=== PATIENT | female | born 1955 | race Two or more races ===

== ENCOUNTER 2019-09-17 08:16 | Emergency (ER) | payer OTHER ==
[~2019-09-17] VITALS: Ht 152.4 cm; Wt 67.6 kg
[2019-09-17 08:30] VITALS: BP_SYST 161; BP_SYST 162; BP_DIAS 57; BP_DIAS 73
--- NOTE | 2019-09-17 08:30 | NUR ---
ED Nurse Note: PT AMBULATED TO ED WITH DAUGHTER WITH C/O OF HIGH BP AT 0800 TODAY. PER PT HER BP WAS 207/111. PT TAKES LOSARTAN AT 0700 TODAY.
--- NOTE | 2019-09-17 08:31 | NUR ---
ED Nurse Note: PT DENIES PAIN, HEADACHES, AND BLURRY VISION. PT PLACED IN GOWN AND ON MONITOR. DAUGHTER AT BEDSIDE. IV SITE ESTABLISHED; PATENT AND INTACT. BLOOD SPECIMEN COLLECTED AND SENT TO LAB. Addendum: 09/17/19 at 0916 by PDELEON ED Nurse Note: PT DENIES PAIN, HEADACHES, AND BLURRY VISION. PT PLACED IN GOWN AND ON MONITOR. DAUGHTER (NAMAN) AT BEDSIDE. IV SITE ESTABLISHED; PATENT AND INTACT. BLOOD SPECIMEN COLLECTED AND SENT TO LAB.
--- NOTE | 2019-09-17 08:57 | NUR ---
ED Nurse Note: XRAY AT BEDSIDE
--- NOTE | 2019-09-17 08:58 | Emergency Room Report ---
History of Present Illness General Chief Complaint: General Complaint Source: Patient Present Illness HPI 63-year-old female complaining of hypertension found to have high blood pressure of 207/111 at today at 8 AM. She took 25 mg of losartan this morning. Patient states that her blood pressure has been going up and down and she has been changing her medication dose associated with her blood pressure. Patient states yesterday in the morning she was very lightheaded and dizzy with blood pressure systolic in the 80s so she did not take her losartan in the morning. She reports that in the evening though it was elevated so she took 25 mg losartan at 9 PM. This morning it was elevated again so she took another dose at 8 AM. Her losartan is prescribed once daily.. She states that she does not often eat breakfast and that can change her blood pressure which changes if she takes her medication. She does not eat breakfast because she has gastritis and sometimes it severe that she is unable to tolerate food. She has not tried any medications for this recently She also states she has anginal pain which she is also takes nitroglycerin sublingual for. She has had no doses of nitroglycerin this week She denies any chest pain, shortness of breath, nausea, diaphoresis, vomiting, back pain, abdominal pain, dizziness at this time Past medical history includes high cholesterol, diabetes, hypertension Allergies: Coded Allergies: No Known Allergies (Unverified , 09/17/19) Patient History Last Menstrual Period: N/A Nursing Documentation-[facility] Past Medical History: No Stated History Hx Cardiac Problems: No - Hypercholesterolemia Hx Hypertension: Yes Hx Diabetes: Yes Review of Systems Constitutional: Denies: chills, fever Respiratory: Denies: cough, shortness of breath Cardiovascular: Denies: chest pain, palpitations Gastrointestinal: Denies: diarrhea, vomiting Genitourinary: Denies: hematuria, pain Musculoskeletal: Denies: joint swelling Skin: Denies: rash, lesions Neurological: Denies: headache, dizziness Physical Exam Vital Signs Date Time Temp Pulse Resp B/P (MAP) Pulse Ox O2 Delivery O2 Flow Rate FiO2 09/17/19 08:28 98.2 87 15 161/73 (102) 98 Room Air Sp02 EP Interpretation: reviewed General Appearance: well appearing, no apparent distress, non-toxic Head: normocephalic, atraumatic Eyes: bilateral eye normal inspection ENT: hearing grossly normal, EOM grossly intact, moist mucus membranes Neck: supple Respiratory: lungs clear, normal breath sounds, no respiratory distress, speaking full sentences Cardiovascular #1: regular rate, rhythm, normal capillary refill Cardiovascular #2: 2+ radial (R), 2+ radial (L) Gastrointestinal: soft, non-distended Rectal: deferred Musculoskeletal: moves extm spontaneously, no lower extremity edema Neurologic: grossly normal Psychiatric: mood/affect normal Skin: warm/dry, normal turgor Medical Decision Making Diagnostic Impression: Primary Impression: Hypertension Additional Impression: Uncontrolled hypertension ER Course 63-year-old female found to have elevated blood pressure. Took her home medication second dose this morning. Patient has not consistent medication administration timings. Secondary to her gastritis symptoms. Differential includes ACS, chest pain not otherwise specified, Recommended patient take an anti-acid every day in the morning 30 minutes prior to breakfast. Recommended to eat breakfast and take her prescribed blood pressure medication at the same time daily. At this time her blood pressure is already improving after her home medication, placed on media monitor and will continue to observe. Order lab testing and chest x-ray to evaluate for other causes of elevated blood pressure Laboratory Tests Test 09/17/19 08:55 White Blood Count 6.2 K/UL (4.8-10.8) Red Blood Count 3.77 M/UL (4.20-5.40) L Hemoglobin 11.4 G/DL (12.0-16.0) L Hematocrit 34.5 % (37.0-47.0) L Mean Corpuscular Volume 92 FL (80-99) Mean Corpuscular Hemoglobin 30.3 PG (27.0-31.0) Mean Corpuscular Hemoglobin Concent 33.1 G/DL (32.0-36.0) Red Cell Distribution Width 11.9 % (11.6-14.8) Platelet Count 245 K/UL (150-450) Mean Platelet Volume 7.0 FL (6.5-10.1) Neutrophils (%) (Auto) 70.6 % (45.0-75.0) Lymphocytes (%) (Auto) 20.9 % (20.0-45.0) Monocytes (%) (Auto) 6.7 % (1.0-10.0) Eosinophils (%) (Auto) 1.0 % (0.0-3.0) Basophils (%) (Auto) 0.8 % (0.0-2.0) Sodium Level 141 MMOL/L (136-145) Potassium Level 4.3 MMOL/L (3.5-5.1) Chloride Level 105 MMOL/L (98-107) Carbon Dioxide Level 32 MMOL/L (21-32) Anion Gap 4 mmol/L (5-15) L Blood Urea Nitrogen 21 mg/dL (7-18) H Creatinine 1.2 MG/DL (0.55-1.30) Estimate Glomerular Filtration Rate 45.3 mL/min (>60) Glucose Level 205 MG/DL (74-106) H Calcium Level 9.5 MG/DL (8.5-10.1) Total Bilirubin 0.4 MG/DL (0.2-1.0) Aspartate Amino Transferase (AST) 19 U/L (15-37) Alanine Aminotransferase (ALT) 26 U/L (12-78) Alkaline Phosphatase 93 U/L (46-116) Troponin I 0.000 ng/mL (0.000-0.056) Total Protein 7.5 G/DL (6.4-8.2) Albumin 3.3 G/DL (3.4-5.0) L Globulin 4.2 g/dL Albumin/Globulin Ratio 0.8 (1.0-2.7) L Lab Results Impression Negative troponin, mild anemia hemoglobin 11.4 mild elevated BUN EKG Diagnostic Results EKG Time: 08:48 EP Interpretation: Normal sinus rhythm rate of [address] changes consistent with ischemia Rhythm: NSR Last Vital Signs Date Time Temp Pulse Resp B/P (MAP) Pulse Ox O2 Delivery O2 Flow Rate FiO2 09/17/19 08:30 98.2 87 15 161/73 98 Room Air Disposition: HOME, SELF-CARE [facility]errals: [facility] Patient Instructions: Hypertension Additional Instructions: Please follow-up with your primary care doctor in 2 to 3 days for medication adjustment. Return to emergency room if you have any new symptoms such as chest pain, dizziness, nausea, vomiting. Please take your medications every day at the same time with food. Trevin Berry M.D. Sep 17, 2019 08:58
--- NOTE | 2019-09-17 09:00 | NUR ---
ED Nurse Note: XRAY COMPLETED.
[2019-09-17 09:10] LABS: BASOPHILS % (AUTO) 0.8 % (0.0-2.0); HEMATOCRIT 34.5 % (37.0-47.0); HEMOGLOBIN 11.4 G/DL (12.0-16.0); LYMPHOCYTES % (AUTO) 20.9 % (20.0-45.0); MEAN CORPUSCULAR VOLUME 92 FL (80-99); MONOCYTES % (AUTO) 6.7 % (1.0-10.0); NEUTROPHILS % (AUTO) 70.6 % (45.0-75.0); PLATELET COUNT 245 K/UL (150-450); RED BLOOD COUNT 3.77 M/UL (4.20-5.40); RED CELL DISTRIBUTION WIDTH 11.9 % (11.6-14.8); WHITE BLOOD COUNT 6.2 K/UL (4.8-10.8)
--- NOTE | 2019-09-17 09:15 | Diagnostic Imaging Report ---
EXAM: XR Chest, 1 View CLINICAL HISTORY: Chest pain TECHNIQUE: Frontal view of the chest. COMPARISON: No relevant prior studies available. FINDINGS: Lungs: Unremarkable. The lungs appear clear. No focal consolidation. Pleural space: Unremarkable. The costophrenic angles are sharp. No visible pneumothorax. Heart: Unremarkable. No cardiomegaly. Mediastinum: Unremarkable. Bones/joints: Degenerative changes throughout the visualized spine. Vasculature: Atherosclerotic calcifications within the aortic arch. Tubes, lines and devices: Telemetry leads overlie the thorax. IMPRESSION: No acute findings.
[2019-09-17 09:22] LABS: ANION GAP 4 mmol/L (5-15); BLOOD UREA NITROGEN 21 mg/dL (7-18); CALCIUM 9.5 MG/DL (8.5-10.1); CARBON DIOXIDE 32 MMOL/L (21-32); CHLORIDE 105 MMOL/L (98-107); CREATININE 1.2 MG/DL (0.55-1.30); POTASSIUM 4.3 MMOL/L (3.5-5.1); SODIUM 141 MMOL/L (136-145)
[2019-09-17 09:27] LABS: ALANINE AMINOTRANSFERASE 26 U/L (12-78); ALBUMIN 3.3 G/DL (3.4-5.0); ALBUMIN/GLOBULIN RATIO 0.8 (1.0-2.7); ALKALINE PHOSPHATASE 93 U/L (46-116); ASPARTATE AMINO TRANSFERASE 19 U/L (15-37); BILIRUBIN,TOTAL 0.4 MG/DL (0.2-1.0)
[2019-09-17 10:15] VITALS: BP 166/63
[2019-09-17 10:25] VITALS: BP 163/65
--- NOTE | 2019-09-17 10:25 | NUR ---
ED Nurse Note: PT DC PER ERMD ORDER. PT DENIES PAIN AT THIS TIME. PT IS AOX4, AND ACCOMPANIED BY DAUGHTER NAMAN. PT WAS GIVEN DC INSTRUCTIONS. IV SITE DISCONTIUED AND ID BAND REMOVED. PT ABLE TO AMBULATED WITH STEADY GAIT.
== END 2019-09-17 10:25 | disposition home or self-care (01) ==
LOC: EMR 08:40
DX: I10 Essential (primary) hypertension (principal); E78.00 Pure hypercholesterolemia, unspecified; E11.9 Type 2 diabetes mellitus without complications
CPT/HCPCS: 36415; 71045; 80053; 84484; 85025; 93005; 99284

== ENCOUNTER 2020-07-11 12:13 | Emergency (ER) | payer OTHER ==
[~2020-07-11] VITALS: Ht 160 cm; Wt 73.5 kg
[2020-07-11 12:30] VITALS: BP 178/80
[2020-07-11 13:25] LABS: BASOPHILS % (AUTO) 1.6 % (0.0-2.0); EOSINOPHILS % (AUTO) 1.7 % (0.0-3.0); HEMATOCRIT 38.1 % (37.0-47.0); HEMOGLOBIN 12.4 G/DL (12.0-16.0); LYMPHOCYTES % (AUTO) 19.2 % (20.0-45.0); MEAN CORPUSCULAR VOLUME 92 FL (80-99); MONOCYTES % (AUTO) 7.6 % (1.0-10.0); NEUTROPHILS % (AUTO) 69.9 % (45.0-75.0); PLATELET COUNT 242 K/UL (150-450); RED BLOOD COUNT 4.15 M/UL (4.20-5.40); RED CELL DISTRIBUTION WIDTH 12.4 % (11.6-14.8); WHITE BLOOD COUNT 6.6 K/UL (4.8-10.8)
[2020-07-11] MEDS ORDERED: NITRO0.4 SL (13:25)
[2020-07-11] MEDS ORDERED: JANUVIA25 MG ORAL (13:25)
[2020-07-11] MEDS ORDERED: AMLODIPINE BESYL5 MG ORAL (13:25)
[2020-07-11] MEDS ORDERED: LOSARTAN POTASS50 MG ORAL (13:25)
[2020-07-11] MEDS ORDERED: ASPIRIN-LOW81 MG ORAL (13:25)
[2020-07-11] MEDS ORDERED: METFORMIN HCL850 M1 ORAL (13:25)
[2020-07-11] MEDS ORDERED: OMEPRAZOLE20 M2 ORAL (13:25)
[2020-07-11] MEDS ORDERED: LIPITOR20 MG ORAL (13:25)
[2020-07-11] MEDS ORDERED: FUROSEMIDE20 M1 ORAL (13:25)
[2020-07-11 13:40] VITALS: BP 160/76
[2020-07-11 13:41] LABS: CALCIUM 8.8 MG/DL (8.5-10.1); CREATININE 1.6 MG/DL (0.55-1.30); POTASSIUM 4.4 MMOL/L (3.5-5.1)
[2020-07-11 13:52] LABS: ALBUMIN 2.7 G/DL (3.4-5.0); ALBUMIN/GLOBULIN RATIO 0.8 (1.0-2.7); BILIRUBIN,TOTAL 0.4 MG/DL (0.2-1.0)
--- NOTE | 2020-07-11 14:10 | Diagnostic Imaging Report ---
Indication: Shortness of breath Technique: One view of the chest Comparison: 09/17/2019 Findings: Was optimal inspiration currently. There are basilar atelectatic changes. There is suggestion of small bilateral pleural effusions as well, left greater than right. Impression: Hypoventilatory exam Bilateral basilar atelectasis and likely small bilateral pleural effusions
--- NOTE | 2020-07-11 14:25 | Emergency Room Report ---
History of Present Illness General Chief Complaint: Abnormal Labs Source: Patient Present Illness HPI 64-year-old female presents the ED for evaluation. Referred by primary care provider for abnormal labs. Told that her BNP was elevated. History of CHF. States she has been feeling short of breath when walking. Notes leg swelling. Denies chest pain. No other aggravating relieving factors. 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 Patient History Past Medical History: DM, CHF Past Surgical History: none Pertinent Family History: none Social History: Denies: smoking, alcohol use, drug use Now: No Immunizations: UTD Reviewed Nursing Documentation: PMH: Agreed; PSxH: Agreed Nursing Documentation-PMH Past Medical History: No History, Except For Hx Cardiac Problems: Yes - Hypercholesterolemia, CHF Hx Hypertension: Yes Hx Diabetes: Yes Review of Systems All Other Systems: negative except mentioned in HPI Physical Exam Vital Signs Date Time Temp Pulse Resp B/P (MAP) Pulse Ox O2 Delivery O2 Flow Rate FiO2 07/11/20 12:28 98.2 88 18 181/88 (119) 100 Room Air Sp02 EP Interpretation: reviewed, normal General Appearance: no apparent distress, alert, GCS 15, non-toxic Head: normocephalic, atraumatic Eyes: bilateral eye normal inspection, bilateral eye PERRL ENT: hearing grossly normal, normal pharynx, no angioedema, normal voice Neck: full range of motion, supple/symm/no masses Respiratory: chest non-tender, lungs clear, normal breath sounds, speaking full sentences Cardiovascular #1: regular rate, rhythm, no edema Cardiovascular #2: 2+ carotid (R), 2+ carotid (L), 2+ radial (R), 2+ radial (L), 2+ dorsalis pedis (R), 2+ dorsalis pedis (L) Gastrointestinal: normal bowel sounds, non tender, soft, non-distended, no g uarding, no rebound Rectal: deferred Genitourinary: normal inspection, no CVA tenderness Musculoskeletal: back normal, normal range of motion, gait/station normal, swelling - 2+ pitting edema Neurologic: alert, motor strength/tone normal, oriented x3, sensory intact, responsive, speech normal Psychiatric: judgement/insight normal, memory normal, mood/affect normal, no suicidal/homicidal ideation Reflexes: 3+ bicep (R), 3+ bicep (L), 3+ tricep (R), 3+ tricep (L), 3+ knee (R), 3+ knee (L) Lymphatic: no adenopathy Medical Decision Making Diagnostic Impression: Primary Impression: CHF exacerbation Qualified Codes: I50.9 - Heart failure, unspecified Additional Impression: Renal insufficiency ER Course Hospital Course 64 yo F presents to ED c/o SOB, leg swelling Differential diagnoses include: NV/unstable angina, contusion, muscle strain, PTX, rib fracture Clinical course Patient placed on stretcher. on bus monitor. After initial history and physical I ordered labs, EKG, chest x-ray labs reviewed- no leukocytosis, hemoglobin/hematocrit stable, creatinine elevated, troponins negative, BNP elevated EKG - NSR, no acute ischemic changes interpreted by me Chest x-ray- pulmonary congestion aspirin given. Lasix given. Because of insurance patient will be transferred I. I feel this is a highly complex case requiring extensive working including EKG/Rhythm strip, Xray/CT/US, Blood/urine lab work, repeat exams while in ED, and administration of strong opiates/narcotics for pain control, admission to hospital or close patient follow up. Diagnosis - CHF exacerbation, renal insufficiency Transferred in serious condition Laboratory Tests Test 07/11/20 12:42 07/11/20 12:51 POC Whole Blood Glucose 144 MG/DL (74-106) H White Blood Count 6.6 K/UL (4.8-10.8) Red Blood Count 4.15 M/UL (4.20-5.40) L Hemoglobin 12.4 G/DL (12.0-16.0) Hematocrit 38.1 % (37.0-47.0) Mean Corpuscular Volume 92 FL (80-99) Mean Corpuscular Hemoglobin 29.8 PG (27.0-31.0) Mean Corpuscular Hemoglobin Concent 32.6 G/DL (32.0-36.0) Red Cell Distribution Width 12.4 % (11.6-14.8) Platelet Count 242 K/UL (150-450) Mean Platelet Volume 7.2 FL (6.5-10.1) Neutrophils (%) (Auto) 69.9 % (45.0-75.0) Lymphocytes (%) (Auto) 19.2 % (20.0-45.0) L Monocytes (%) (Auto) 7.6 % (1.0-10.0) Eosinophils (%) (Auto) 1.7 % (0.0-3.0) Basophils (%) (Auto) 1.6 % (0.0-2.0) Sodium Level 140 MMOL/L (136-145) Potassium Level 4.4 MMOL/L (3.5-5.1) Chloride Level 107 MMOL/L (98-107) Carbon Dioxide Level 25 MMOL/L (21-32) Anion Gap 8 mmol/L (5-15) Blood Urea Nitrogen 29 mg/dL (7-18) H Creatinine 1.6 MG/DL (0.55-1.30) H Estimat Glomerular Filtration Rate 32.4 mL/min (>60) Glucose Level 148 MG/DL (74-106) H Calcium Level 8.8 MG/DL (8.5-10.1) Total Bilirubin 0.4 MG/DL (0.2-1.0) Aspartate Amino Transf (AST/SGOT) 25 U/L (15-37) Alanine Aminotransferase (ALT/SGPT) 36 U/L (12-78) Alkaline Phosphatase 94 U/L (46-116) Troponin I 0.054 ng/mL (0.000-0.056) Pro-B-Type Natriuretic Peptide 76898 pg/mL (0-125) H Total Protein 5.9 G/DL (6.4-8.2) L Albumin 2.7 G/DL (3.4-5.0) L Globulin 3.2 g/dL Albumin/Globulin Ratio 0.8 (1.0-2.7) L EKG Diagnostic Results Rate: normal Rhythm: NSR ST Segments: no acute changes ASA given to the pt in ED: Yes Rhythm Strip Diag. Results EP Interpretation: yes Rhythm: NSR, no PVC's, no ectopy Chest X-Ray Diagnostic Results Chest X-Ray Diagnostic Results : Chest X-Ray Ordered: Yes # of Views/Limited/Complete: 1 View Indication: Shortness of Breath EP Interpretation: Yes Interpretation: no consolidation, no pneumothorax, other - cardiomegaly Impression: Other - chf Electronically Signed by: Electronically signed by Billy Blandon MD Last Vital Signs Date Time Temp Pulse Resp B/P (MAP) Pulse Ox O2 Delivery O2 Flow Rate FiO2 07/11/20 13:40 98.1 72 18 160/76 100 Room Air Status: improved Disposition: SHORT-TERM HOSP Condition: Serious Referrals: [facility],REFERRING (PCP) Billy Blandon MD Jul 11, 2020 14:25
[2020-07-11 15:25] VITALS: BP 148/82
--- NOTE | 2020-07-12 17:39 | Cardiology Report ---
APPROVED REPORT EKG Measurement Heart [id number] <Conclusion> Normal sinus rhythm LVH Possible Left atrial enlargement Borderline ECG
== END 2020-07-11 15:25 | disposition short-term general hospital (02) ==
LOC: EMR 13:08
DX: I50.9 Heart failure, unspecified (principal); N28.9 Disorder of kidney and ureter, unspecified; I10 Essential (primary) hypertension; E11.9 Type 2 diabetes mellitus without complications; E78.00 Pure hypercholesterolemia, unspecified
CPT/HCPCS: 36415; 71045; 80053; 82962; 83880; 84484; 85025; 93005; 96374; 99284; J1940